=== PATIENT | male | born 1955 | race African-American/Black ===

== ENCOUNTER 2016-08-17 14:30 | Emergency (ER) | payer MEDICAID, OTHER ==
[~2016-08-17] VITALS: Ht 175.3 cm; Wt 73.0 kg
[~2016-08-17 14:30] MED LIST: ALBUTEROL
[2016-08-17 17:51] LABS: CLARITY URINE CLEAR (CLEAR); COLOR URINE YELLOW (YELLOW); GLUCOSE URINE NEGATIVE (NEGATIVE); KETONES URINE NEGATIVE (NEGATIVE); LEUKOCYTE ESTERASE URINE 1+ (NEGATIVE); NITRITE URINE POSITIVE (NEGATIVE); OCCULT BLOOD URINE TRACE (NEGATIVE); PH URINE 6.5 (4.5-8.0); PROTEIN URINE NEGATIVE (NEGATIVE); SPECIFIC GRAVITY URINE 1.014 (1.005-1.030); UROBILINOGEN URINE 0.2 E.U./dL (0.2-1.0)
[2016-08-17 18:17] VITALS: BP 128/80
[2016-08-17 18:26] LABS: BACTERIA URINE 4+; RBC URINE 0-2 /hpf (0-2); SQUAMOUS EPITHELIAL CELL URINE NONE SEEN /lpf (RARE/1+)
[2016-08-17] MEDS ORDERED: CEFTRIAXONE SODIUM 1 G/VIAL IM NR (18:30)
[2016-08-17] MEDS ORDERED: LIDOCAINE HCL 1% 20ML VIAL (Pyxis) INJ INFIL NR (18:30)
== END 2016-08-17 19:20 | disposition home or self-care (01) ==
LOC: ER 17:07
DX: N39.0 Urinary tract infection, site not specified (principal); N13.9 Obstructive and reflux uropathy, unspecified; Z98.890 Other specified postprocedural states
CPT/HCPCS: 51702; 81001; 96372; 99284; J0696; J3490; Z7610; A4315

== ENCOUNTER 2019-12-18 11:39 | Emergency (ER) | payer MEDICARE, MEDICAID ==
[~2019-12-18] VITALS: Ht 175.3 cm; Wt 75.0 kg
[2019-12-18 12:04] VITALS: BP 134/83
== END 2019-12-18 13:10 | disposition home or self-care (01) ==
LOC: ER 11:39
DX: N50.89 Other specified disorders of the male genital organs (principal); R03.0 Elevated blood-pressure reading, without diagnosis of hypertension
CPT/HCPCS: 93005; 99283